=== PATIENT | female | born 1975 ===

== ENCOUNTER 2018-04-01 13:03 | Emergency (ER) | payer OTHER ==
[2018-04-01 13:21] VITALS: O2SAT 100
[2018-04-01 14:48] LABS: HEMOGLOBIN 12.8 g/dL (12.0-16.0); MEAN CELL VOLUME 90.3 fl (81.0-99.0); MEAN CORPUSCULAR HEMOGLOBIN 31.5 pg (27.0-31.0); MEAN CORPUSCULAR HGB CONC 34.9 g/dL (33.0-37.0); RBC 4.08 Mil/uL (3.80-5.20); WHITE BLOOD COUNT 8.6 K/uL (4.8-10.8)
[2018-04-01 14:57] LABS: BLOOD UREA NITROGEN 9 mg/dl (7-17); CALCIUM 9.3 mg/dL (8.4-10.2); GFR AFRICAN-AMERICAN > 60; GFR NON-AFRICAN AMERICAN > 60
--- NOTE | 2018-04-01 14:57 | ED PDOC ---
HPI: Abdomen Time Seen by Provider: 04/01/18 13:48 Chief Complaint (Nursing): Abdominal Pain Chief Complaint (Provider): abdominal pain & vomiting History Per: Patient History/Exam Limitations: no limitations Onset/Duration Of Symptoms: Days (x3 weeks), Intermittent Episodes Current Symptoms Are (Timing): Still Present Location Of Pain/Discomfort: Other (lower abdomen) Quality Of Discomfort: Cramping Associated Symptoms: Vomiting. denies: Fever, Chills, Diarrhea, Other (vaginal bleeding or discharge) Additional Complaint(s): Desire Romano is a 42 year old female, with a past medical history of HTN, who presents to the emergency department complaining of a crampy abdominal pain associated with vomiting onset for x3 weeks. Patient states the pain is on and off, and localized to the lower abdomen. Patient reports she has been vomiting intermittently once a day almost every day since onset. She is able to eat and drink but does report a decreased appetite. LMP on January 2018, and is unsure if she is . She denies any fever, chills, diarrhea, vaginal bleeding or discharge. No further medical complaints. PMD: None provided. Abnormal Vaginal Bleeding: No Last Menstral Period: January 2018 Past Medical History Reviewed: Historical Data, Nursing Documentation, Vital Signs Vital Signs: Last Vital Signs Temp 98.1 F 04/01/18 18:31 Pulse 74 04/01/18 18:31 Resp 16 04/01/18 18:31 BP 148/88 04/01/18 18:31 Pulse Ox 100 04/01/18 23:07 - Medical History PMH: HTN (as per EMS) - Surgical History Surgical History: No Surg Hx - Family History Family History: States: Unknown Family Hx - Social History Alcohol: Other (today) Drugs: Denies - Home Medications Home Medications: Ambulatory Orders Medication Instructions Recorded Sulfamethoxazole/Trimethoprim 1 tab PO BID #14 tab 12/15/16 [Bactrim DS 800 mg-160 mg] Labetalol [Trandate] 100 mg PO BID #30 tab 04/01/18 Multivit/Folic Acid/I 1 tab PO DAILY #100 tab 04/01/18 [ Plus] - Allergies Allergies/Adverse Reactions: Allergies Allergy/AdvReac Type Severity Reaction Status Date / Time No Known Allergies Allergy Verified 04/01/18 13:30 Review of Systems ROS Statement: Except As Marked, All Systems Reviewed And Found Negative Constitutional: Negative for: Fever, Chills Gastrointestinal: Positive for: Vomiting, Abdominal Pain (crampy). Negative for : Diarrhea Genitourinary Female: Negative for: Vaginal Discharge, Vaginal Bleeding Physical Exam - Reviewed Nursing Documentation Reviewed: Yes Vital Signs Reviewed: Yes - Physical Exam Appears: Positive for: Non-toxic, No Acute Distress Head Exam: Positive for: ATRAUMATIC, NORMOCEPHALIC Skin: Positive for: Normal Color, Warm, Dry Eye Exam: Positive for: Normal appearance, EOMI, PERRL ENT: Positive for: Normal ENT Inspection Neck: Positive for: Painless ROM Cardiovascular/Chest: Positive for: Regular Rate, Rhythm. Negative for: Murmur Respiratory: Positive for: Normal Breath Sounds. Negative for: Respiratory Distress Gastrointestinal/Abdominal: Positive for: Tenderness (suprapubic) Back: Positive for: Normal Inspection. Negative for: L CVA Tenderness, R CVA Tenderness, Vertebral Tenderness Extremity: Positive for: Normal ROM (upper and lower extremities). Negative for : Deformity, Swelling Neurologic/Psych: Positive for: Alert, Oriented. Negative for: Motor/Sensory Deficits - Laboratory Results Result Diagrams: 04/01/18 14:30 04/01/18 14:30 - ECG O2 Sat by Pulse Oximetry: 100 (RA) Pulse Ox Interpretation: Normal Medical Decision Making Medical Decision Making: Initial Impression: abdominal pain and vomiting in , UTI, hypertension in patient. R/O ectopic . Initial Plan: --Type and screen --BMP -- serum -- test --Urine dipstick --CBC --OB Transvaginal [US] --Reevaluation 14:02 -Patient tested positive for 17:00 -Patient signed out to Dr. Coleman, pending ultrasound. ----- Scribe Attestation: Documented by Jas Chow, acting as a scribe for Rubia Pack MD. Provider Scribe Attestation: All medical record entries made by the Scribe were at my direction and personally dictated by me. I have reviewed the chart and agree that the record accurately reflects my personal performance of the history, physical exam, medical decision making, and the department course for this patient. I have also personally directed, reviewed, and agree with the discharge instructions and disposition. Disposition - Clinical Impression Clinical Impression: Twin gestation in first trimester, Hypertension - Patient ED Disposition Is Patient to be Admitted: Transfer of Care Counseled Patient/Family Regarding: Studies Performed, Diagnosis - Disposition Referrals: [facility]Outside[facility] ([facility]3 [facility]) Disposition: Transfer of Care Disposition Time: 17:00 Condition: STABLE Prescriptions: Labetalol [Trandate] 100 mg PO BID #30 tab Multivit/Folic Acid/I [ Plus] 1 tab PO DAILY #100 tab Instructions: High Blood Pressure and , - The Third Month Forms: [facility] ED School/Work Excuse Print Language: OCCITAN Patient Signed Over To: Delia Coleman Handoff Comments: Pending ultrasound
[2018-04-01] MEDS ORDERED: Potassium Chloride 20 mEq ER Tab PO ONE ×2 (15:56→16:55)
[2018-04-01 17:03] VITALS: PULSE 74
--- NOTE | 2018-04-01 17:18 | ED PDOC ---
- Laboratory Results Result Diagrams: 04/01/18 14:30 04/01/18 14:30 - ECG O2 Sat by Pulse Oximetry: 100 (RA) Medical Decision Making Medical Decision Makin:00 -Patient endorsed to me by Dr. Pack, patient is with hypertension. Pending ultrasound, labs and final ER disposition. 17:36 Transvaginal US FINDINGS: UTERUS: Twin intrauterine gestation. Fetus A: Gestational sac equivalent to 9 weeks 0 days. The [place]-rump length 20 mm equal and 2 8 weeks 4 days. Average ultrasound age 8 weeks 6 days LAYO by ultrasound 11/05/2018 No detectable cardiac activity 8 mm yolk sac visualized. This is abnormal in diameter Fetus B: Gestational sac diameter equivalent to 8 weeks 1 day The Hideout-rump length 23 mm equivalent to 9 weeks 0 days Average ultrasound age 8 weeks 4 days heart rate 161 beats per minutes 5 mm yolk sac visualized. Uterus measures 12.5 x 7.5 x 8.2 cm. No uterine mass. CERVIX: Cervix closed and measures 3.9 cm RIGHT OVARY: Measures 3.4 x 2.1 x 3.5 cm. No mass. Normal flow. Simple cyst, 3.0 x 1.5 x 3.1 cm LEFT OVARY: Not visualized. FREE FLUID: None. OTHER FINDINGS: None. IMPRESSION: Twin intrauterine gestation. Fetus a demonstrates no detectable cardiac activity. Fetus B equal to 8 weeks 4 days gestational age with heart rate of 160 beats per minute. No subchorionic hemorrhage identified. Cervix long and closed. Incidental 3.1 cm simple right ovarian cyst. 18:00 -DW pt at length findings and plan of care. Upon provider reevaluation patient is feeling better, is medically stable, and requires no further treatment in the ED at this time. Patient will be discharged home with Rx for Labetalol and vitamins. Counseling was provided and all questions were answered regarding diagnosis and need for follow up with women's clinic for care. There is agreement to discharge plan. Return if symptoms persist or worsen. Disposition - Clinical Impression Clinical Impression: Twin gestation in first trimester, Hypertension - POA Present On Arrival: None - Disposition Referrals: [facility] [Outside] ([facility] 2[facility]3 [facility]) Disposition: Routine/Home Disposition Time: 18:00 Condition: STABLE Prescriptions: Labetalol [Trandate] 100 mg PO BID #30 tab Multivit/Folic Acid/I [ Plus] 1 tab PO DAILY #100 tab Instructions: High Blood Pressure and , - The Third Month Forms: [facility] ED School/Work Excuse Print Language: SWAZI
[2018-04-01 17:30] LABS: SQUAMOUS EPITHIAL 3 /hpf (0-5); URINE BACTERIA OCC (<OCC); URINE BILIRUBIN NEGATIVE (NEGATIVE); URINE BLOOD MODERATE (NEGATIVE); URINE CLARITY CLOUDY (Clear); URINE COLOR YELLOW (YELLOW); URINE GLUCOSE (UA) NEG (Normal); URINE LEUKOCYTE ESTERASE NEG Leu/uL (Negative); URINE PROTEIN NEGATIVE (NEGATIVE); URINE UROBILINOGEN 0.2-1.0 mg/dL (0.2-1.0)
[2018-04-01 17:35] LABS: ALB/GLOB RATIO 1.1 (1.0-2.1); ALBUMIN 3.5 g/dL (3.5-5.0); BILIRUBIN,DIRECT 0.3 mg/ml (0.0-0.4)
--- NOTE | 2018-04-01 17:38 | US ---
PROCEDURE: OB Pelvic Ultrasound HISTORY: pelvic pain vomiting COMPARISON: None available. FINDINGS: UTERUS: Twin intrauterine gestation. Fetus A: Gestational sac equivalent to 9 weeks 0 days. [place]-rump length 20 mm equal and 2 8 weeks 4 days. Average ultrasound age 8 weeks 6 days LAYO by ultrasound 11/05/2018 No detectable cardiac activity 8 mm yolk sac visualized. This is abnormal in diameter Fetus B: Gestational sac diameter equivalent to 8 weeks 1 day Round[place]-rump length 23 mm equivalent to 9 weeks 0 days Average ultrasound age 8 weeks 4 days heart rate 161 beats per minutes 5 mm yolk sac visualized. Uterus measures 12.5 x 7.5 x 8.2 cm. No uterine mass. CERVIX: Cervix closed and measures 3.9 cm RIGHT OVARY: Measures 3.4 x 2.1 x 3.5 cm. No mass. Normal flow. Simple cyst, 3.0 x 1.5 x 3.1 cm LEFT OVARY: Not visualized. FREE FLUID: None. OTHER FINDINGS: None. IMPRESSION: Twin intrauterine gestation. Fetus a demonstrates no detectable cardiac activity. Fetus B equal to 8 weeks 4 days gestational age with heart rate of 160 beats per minute. No subchorionic hemorrhage identified. Cervix long and closed. Incidental 3.1 cm simple right ovarian cyst.
[2018-04-01 18:32] VITALS: BP 148/88; RESP 16; TEMP 98.1
== END 2018-04-01 18:25 | disposition home or self-care (01) ==
LOC: H.ER 13:03
DX: O26.891 Other specified pregnancy related conditions, first trimester (principal); I10 Essential (primary) hypertension; O16.1 Unspecified maternal hypertension, first trimester; O21.9 Vomiting of pregnancy, unspecified; O23.41 Unspecified infection of urinary tract in pregnancy, first trimester; O34.81 Maternal care for other abnormalities of pelvic organs, first trimester; Z3A.08 8 weeks gestation of pregnancy

== ENCOUNTER 2018-08-29 03:46 | Emergency (ER) | payer SELFPAY ==
[2018-08-29 05:51] VITALS: BMI 29.2
[2018-08-29 06:39] LABS: SQUAMOUS EPITHIAL < 1 /hpf (0-5); URINE BACTERIA RARE (<OCC); URINE BILIRUBIN NEGATIVE (NEGATIVE); URINE BLOOD MODERATE (NEGATIVE); URINE CLARITY SLIGHTY-CLOUDY (Clear); URINE COLOR YELLOW (YELLOW); URINE GLUCOSE (UA) NEG (Normal); URINE LEUKOCYTE ESTERASE NEG Leu/uL (Negative); URINE PROTEIN NEGATIVE (NEGATIVE); URINE UROBILINOGEN 0.2-1.0 mg/dL (0.2-1.0)
--- NOTE | 2018-08-29 09:42 | OBHP ---
Datetime: 08/29/2018 06:38 IP Adm Impression: , intrauterine IP Chief Complaint Other: Generalized body ache IP Admit Plan: Observation/Evaluation Admit Comment, IP Provider: 42 yo with IUP @ 31.2 weeks based on LAYO of 10/29/18 presents to the OB ED because of generalized body pain. She reports that began yesterday and is associated with with dry cough, subjective fever, headache and sore throat. Denies blurred vision, dysuria, nausea, v omiting, sick contacts, recent travel, diarrhea, night sweats, vaginal bleeding, contractions and los s of fluid. She reports good movement. Last sexual activity was last week. Patient follows at [facility], last visit was and next visit is in two weeks. Ros negative except for above. ObHx: this is complicated by Hypertension treated with Labetalol 100mg. 2 's- no complications. 1 miscarriage. PMH: Denies Family history: Denies Social: Denies alcohol use, smoking history, and illicit drug use. Surgical history: Denies Allergies: N.K.D.A Medications: PNV, labetalol 100mg Physical exam: Patient is in no acute distress. Heart: S1 and S2 appreciated. No murmurs, gallops or rubs. Lungs: Clear air entry bilaterally. Abdomen: Gravid, soft, non-tender to palpation Vaginal exam: Closed. Assessment: 42 yo with IUP @ 31.2 weeks presents with generalized body aches. NST Reactive Plan: - Discharge Home. - U/A: Negative - Patient encouraged to drink a lot of fluids at home and to take her usual labetalol 100 mg dosag e. - Labor precautions given - Patient counseled on making an appointment with her primary if she continues to not feel well. Discussed with Dr. Camilo ---Naomi Álvarez, PGY-1 [place]. Attending Note: patient was seen and evaluated with the resident and I agree with the above assess ment. Pelvic Type - PN: Adequate Extremities - PN: Normal Abdomen - PN: Normal Back - PN: Normal Breast - PN: Not Done Lungs - PN: Normal Heart - PN: Normal Thyroid - PN: Not Done Neurologic - PN: Not Done HEENT - PN: Not Done General - PN: Normal FHR - Baseline A Provider: 150 Gestation - Est Wks by US: 31.4 Vital Signs Provider: Reviewed Vital Signs Provider Details: hypertension IP Chief Complaint: Illness; Maternal discomfort NICHD Variability Prov Fetus A: Moderate 6-25bpm NICHD Accel Fetus A IP Provider: 15X15 FHR Category Provider Fetus A: Category I NICHD Decel Fetus A IP Provider: None Genitourinary Exam: Not Done DTRs - PN: Not Done
[2018-08-29 11:49] VITALS: BP 135/78; PULSE 89; RESP 18; TEMP 98.4; O2SAT 99
== END 2018-08-29 07:05 | disposition home or self-care (01) ==
LOC: H.EROB2 03:46
DX: O26.93 Pregnancy related conditions, unspecified, third trimester (principal); M79.10 Myalgia, unspecified site; R05 Cough; Z3A.31 31 weeks gestation of pregnancy

== ENCOUNTER 2018-10-13 12:16 | Emergency (ER) | payer SELFPAY ==
[2018-10-13 13:24] VITALS: BMI 28.3
[2018-10-13 14:01] LABS: URINE BILIRUBIN NEGATIVE (NEGATIVE); URINE CLARITY CLEAR (Clear); URINE COLOR YELLOW (YELLOW); URINE GLUCOSE (UA) NEG (Normal); URINE LEUKOCYTE ESTERASE NEG Leu/uL (Negative); URINE PROTEIN NEGATIVE (NEGATIVE); URINE UROBILINOGEN 0.2-1.0 mg/dL (0.2-1.0)
[2018-10-13 14:23] LABS: URINE BLOOD SMALL (NEGATIVE)
[2018-10-13 14:24] LABS: SQUAMOUS EPITHIAL 5 /hpf (0-5); URINE BACTERIA RARE (<OCC)
--- NOTE | 2018-10-13 16:21 | OBHP ---
Datetime: 10/13/2018 13:29 IP Adm Impression: , intrauterine ; No Active Labor; Intact Membranes IP Admit Plan: Observation/Evaluation; Discharge home Admit Comment, IP Provider: 42 y/o @ 36.4wks W/LAYO of 11/07/2018 _ medical hx of HTN came in c/o abdominal pain. She endorses +FM _ denies vaginal bleeding or loss of fluid. She denies any ligh theadedness, headache, blurred vision, n/v/diarrhea, chest discomfort or shortness of breath. OBGYNhx: 1 SAB, AMA PMH: chronic HTN Allergies: NKA Meds: Labetolol, PNV,ASA Famhx: denies Sochx: denies EtOH, cigarette or elicit drug us Surghx: denies ROS: 12 points reviewed an neg unless othwerise mentioned in HPI PE: Cardio: s1s2 RRR Lungs: cta b/l Abd: gravid, BS+, nontender Pelvic: cervix is fingertip Ext: nonedematous A/P:42 y/o @ 36.4wks W/LAYO of 11/07/2018 _ medical hx of HTN came in c/o abdominal pain. -Not in active labor -FU urinalysis -Vaginal swab performed -Patient will fu in clinic in 2 days Patient seen and evaluated with Dr. Galina Barnard, , PGY-1 OB Hospitalist professor of physical education. With Makenna Brizuela nurse and PGY1, she was seen and examined. Pt did not kno w when her next appt was scheduled for. She stated that nothing was written down as a reminder. I c alled [facility] and confirmed that she had appt to day at 4pm. GBS culture done today. Arranged that she s ees CF this at 10am. Pt understood. This appt was given to her (written) and explained in mohawk. I also spoek to Dr Shelton regarding this patient. MAHNDO Abdomen - PN: Normal Lungs - PN: Normal Heart - PN: Normal Contraction Comments Provider: none Pool Provider: Negative IP Hx Assessment: The History has been Reviewed and is Current EGA AdmitDate IP: 36.3 Vital Signs Provider: Reviewed IP Chief Complaint: Uterine contractions; Maternal discomfort FHR Category Provider Fetus A: Category I NICHD Decel Fetus A IP Provider: None Dilatation, Provider: 0
[2018-10-14] MEDS ORDERED: Magnesium Sul 40GM/1L SW 40 GM/1,000 ML ML IV ONE (04:43)
[2018-10-14] MEDS ORDERED: OXYTOCIN/0.9 % NS 20 UNIT/1,000 ML BAG IV ONE (07:21)
[2018-10-14] MEDS ORDERED: ceFAZolin IV 2 gm in Dextrose 2 GM/50 ML BAG IVPB ONE (07:22)
[2018-10-14] MEDS ORDERED: Morphine 1 mg/ml preservative-free Inj(Duramorph) ONE (07:41)
[2018-10-14] MEDS ORDERED: ePHEDrine 50 mg/ml Inj ONE (07:42)
[2018-10-14] MEDS ORDERED: Phenylephrine 10 mg/ml Inj ONE (07:43)
[2018-10-14] MEDS ORDERED: Cellulose Hemostat 2X3 Sheet ONE (12:14)
[2018-10-14] MEDS ORDERED: Propofol 10 mg/ml Inj (20 ML) ONE (12:20)
[2018-10-14] MEDS ORDERED: Absorbable Gelatin Sponge Size 12-7 ONE (12:26)
[2018-10-20 00:11] VITALS: BP 147/85; PULSE 85; RESP 20; TEMP 98.1; O2SAT 99
== END 2018-10-13 13:45 | disposition home or self-care (01) ==
LOC: H.EROB2 12:16
DX: O26.93 Pregnancy related conditions, unspecified, third trimester (principal); R10.2 Pelvic and perineal pain; Z3A.36 36 weeks gestation of pregnancy
CPT/HCPCS: 81003; 87081; 99283; J2270; J2370; J2405; J2704; J3010

== ENCOUNTER 2018-10-14 03:37 | Inpatient (IN) | payer MEDICAID, SELFPAY ==
[2018-10-13 13:24] VITALS: BMI 28.3
[2018-10-14] MEDS ORDERED: ceFAZolin IV 2 gm in Dextrose 2 GM/50 ML BAG IVPB ONE ×3 (04:34→13:47)
[2018-10-14] MEDS ORDERED: AMPicillin 2 GM in Sodium Chloride 0.9% 100 ML IV ONE (04:42)
[2018-10-14] MEDS ORDERED: Magnesium Sulfate 4 gm/100 ml 4 GM/100 ML BAG IV ONE (04:42)
[2018-10-14] MEDS ORDERED: Magnesium Sul 40GM/1L SW 40 GM/1,000 ML ML IV ONE ×2 (04:44→04:46)
[2018-10-14] MEDS ORDERED: Lactated Ringer's 1,000 ML IV SCH ×2 (04:45→13:00)
[2018-10-14] MEDS: Lactated Ringer's 1,000 ML IV SCH (04:52)
[2018-10-14 05:26] LABS: BASO % 0.3 % (0.0-2.0); EOS # 0.1 K/uL (0.0-0.7); EOS % 0.5 % (0.0-4.0); LYMPH # 3.1 K/uL (1.0-4.3); LYMPH % 27.8 % (20.0-40.0); MEAN CELL VOLUME 93.2 fl (81.0-99.0); MEAN CORPUSCULAR HGB CONC 33.3 g/dL (33.0-37.0); MEAN PLATELET VOLUME 11.8 fl (7.2-11.7); MONO # 0.7 K/uL (0.0-0.8); MONO % 6.5 % (0.0-10.0); NEUT # 7.3 K/uL (1.8-7.0); NEUT % 64.9 % (50.0-75.0); NRBC % 0.1 % (0.0-0.0); RBC 3.86 Mil/uL (3.80-5.20); RED CELL DISTRIBUTION WIDTH 13.1 % (11.5-14.5); WHITE BLOOD COUNT 11.3 K/uL (4.8-10.8)
[2018-10-14 05:54] LABS: ALB/GLOB RATIO 0.8 (1.0-2.1); ALBUMIN 3.3 g/dL (3.5-5.0); ALT/SGPT 16 U/L (9-52); AST/SGOT 25 U/L (14-36); BILIRUBIN,DIRECT 0.1 mg/ml (0.0-0.4); BLOOD UREA NITROGEN 10 mg/dl (7-17); CALCIUM 9.3 mg/dL (8.4-10.2); GFR NON-AFRICAN AMERICAN > 60; URIC ACID 5.9 mg/Dl (2.2-7.5)
[2018-10-14 07:03] LABS: SQUAMOUS EPITHIAL 4 /hpf (0-5); URINE BACTERIA OCC (<OCC); URINE BILIRUBIN NEGATIVE (NEGATIVE); URINE BLOOD MODERATE (NEGATIVE); URINE CLARITY SLIGHTY-CLOUDY (Clear); URINE COLOR YELLOW (YELLOW); URINE GLUCOSE (UA) NEG (Normal); URINE LEUKOCYTE ESTERASE NEG Leu/uL (Negative); URINE PROTEIN NEGATIVE (NEGATIVE); URINE UROBILINOGEN 0.2-1.0 mg/dL (0.2-1.0)
[2018-10-14] MEDS ORDERED: Oxytocin 30 UNIT 30 UNITS/500 ML BAG IV ONE ×2 (07:25→12:51)
[2018-10-14] MEDS ORDERED: OXYTOCIN/0.9 % NS 20 UNIT/1,000 ML BAG IV SCH ×2 (07:30→13:58)
--- NOTE | 2018-10-14 07:45 | OBADHP ---
Datetime: 10/14/2018 04:30 Admit Comment, IP Provider: Pt is a 42 yo F IUP @ 36.5wk LAYO is 11/06/18 based on 12 week U/ s on 04/17/18 and LMP of 01/30/18. Pt here for contractions since yesterday now every 15 mins apart and SROM at 2am. Denies vaginal bleeding, fevers, dizziness, headache, blurry vision, chest pain, SOB, na usea, vomiting, diarrhea, constipation, dysuria, swelling; Reports good movement. PNP: [facility]- Dr. Shelton PNL: ABO:A+ labs unremarkable OB HX: Preeclampsia, chronic HTN on Labetalol 2 at term 1 1997- D + C Materials Coordinator Hx: Pap normal, denies STI's PMHx: Chronic HTN Meds: Labetalol 100mg BID (Only taking it once per day), last took prenatals 1 week ago Allergies: NKDA Surg Hx: Denies Social Hx: Denies Smoking, EtOh, Drugs Family Hx: Denies PHYSICAL EXAM General: Lying in bed comfortable, NAD HEENT: NCAT, EOMI Heart: no murmurs, regular rate and rhythm, S1, S2 normal. Lungs: clear to auscultation bilaterally, no wheezing, rales or rhonchi Abdomen: Gravid, soft non tender to palpation, + BS LE: No edema Heart Rate: 130, moderate variability, Category 1, 15x15 A/P 42 yo F IUP @ 36.5wk here for contractions and SROM -Admit to L _ D. -Pre eclamptic work up -Started Magnesium -Ampicillin PPROM, AMA -Bedside U/S- transverse lie -Initiate C section protocol, Ancef -Bimanual- .5cm dilated, + Nitrazine -Monitor heart tracings 130 moderate variability, Category 1, 15x15 Case reviewed and discussed with Attending Penelope Moses M.D. PGY-1 OB Attending note: Pt seen and examined with PGY1...agree with note. She is a patient from [facility]. S he was seen yesterday in [place]. She understood that with malpresentation, she would have operative del shirley. She also stated that she wanted sterilizartion with BTL. Looking at [facility], sterilization conse nt obtained. Informed consent obtained for procedure (Procurement Consultant serivce used). MAHNDO Pelvic Type - PN: Adequate Extremities - PN: Normal Abdomen - PN: Normal Back - PN: Not Done Breast - PN: Not Done Lungs - PN: Normal Heart - PN: Normal Thyroid - PN: Not Done Neurologic - PN: Not Done HEENT - PN: Normal General - PN: Normal Presentation-Admit: Transverse FHR - Baseline A Provider: 130 Amniotic Fluid Color, Provider: Clear Membranes, Provider: Ruptured Comments, ACOG Physical Exam: Bedside U/S- Transverse lie Bimanual- .5cm dilated, + Nitrazine Pool Provider: Positive Nitrazine Provider: Positive (Annotations: Data stored by CPN on behalf of user) IP Hx Assessment: The History has been Reviewed and is Current (Annotations: Data stored by CPN on behalf of user) Vital Signs Provider: Reviewed Vital Signs Provider Details: BP 179/95 IP Chief Complaint: Uterine contractions; Suspected ruptured membranes NICHD Variability Prov Fetus A: Moderate 6-25bpm NICHD Accel Fetus A IP Provider: 15X15 FHR Category Provider Fetus A: Category I NICHD Decel Fetus A IP Provider: None Dilatation, Provider: FT Genitourinary Exam: Normal DTRs - PN: Not Done EGA AdmitDate IP: 36.5 IP Adm Impression: , intrauterine ; Ruptured Membranes IP Admit Plan: Admit to unit; Initiate Section protocol Datetime: 10/13/2018 13:29 Contraction Comments Provider: none Datetime: 08/29/2018 06:38 IP Chief Complaint Other: Generalized body ache Gestation - Est Wks by US: 31.4
[2018-10-14] MEDS ORDERED: Labetalol 5mg/ml (4ml) ONE (07:52)
--- NOTE | 2018-10-14 07:55 | OBPN ---
Datetime: 10/14/2018 07:30 IP Informed Consent Obtain: Section Delivery; Risks, Benefits and Alternatives Discussed IP Progress Plan: Deliver- Section IP Progress Note Comment: Again, we spoke again about procdure. Makenna Brizuela was present. Her additio nal questions were answered. Dr Mcgraw was also obtaining consent forms Datetime: 10/14/2018 04:30 Pool Provider: Positive Nitrazine Provider: Positive (Annotations: Data stored by CPN on behalf of user) Membranes, Provider: Ruptured Amniotic Fluid Color, Provider: Clear FHR - Baseline A Provider: 130 Presentation-Admit: Transverse Vital Signs Provider: Reviewed Vital Signs Provider Details: BP 179/95 NICHD Accel Fetus A IP Provider: 15X15 FHR Category Provider Fetus A: Category I NICHD Variability Prov Fetus A: Moderate 6-25bpm Dilatation, Provider: FT NICHD Decel Fetus A IP Provider: None Datetime: 10/13/2018 13:29 Contraction Comments Provider: none Datetime: 08/29/2018 06:38 Gestation - Est Wks by US: 31.4
[2018-10-14] MEDS: Lactated Ringer's 1,000 ML IV ONE ×2 (08:00→11:00)
[2018-10-14] MEDS ORDERED: Labetalol 5mg/ml (4ml) IVP STA ×2 (08:02→13:32)
[2018-10-14] MEDS ORDERED: Benzocaine/Menthol SPRAY TOP PRN (10:50)
[2018-10-14] MEDS ORDERED: Oxycodone/Acetaminophen 5/325 mg Tab PO PRN ×2 (12:51)
--- NOTE | 2018-10-14 12:58 | OBDS ---
DELIVERY PERSONNEL Delivery Doctor: Tabby Wilkes MD Lead Driver: Makenna Brizuela RN Anesthesiologist: MD charli Resident: Alex (Fellow) MATERNAL INFORMATION Delivery Anesthesia: Spinal Medications in Delivery: pitocin Estimated Blood Loss (ml): 1000 Placenta Cultured: No Maternal Complications: None RN Comments: Atraumatic primary delivery of a viable babygirl tolerated delivery we ll recived by Dr Landers assigned 9/9 APGARS. Clear fluid noted. Patient tolerated delivery well. Sk in to skin initiated Provider Comments: see operative report LABOR SUMMARY EDC: 11/06/2018 00:00 No. Babies in Womb: 1 Attempted: No Labor Anesthesia: Spinal LABOR INFORMATION Reason for Induction: Not Applicable Oxytocin: N/A Group B Beta Strep: Done, Result Unknown Antibiotics # of Doses: 1 Antibiotics Time of Last Dose: 10:50 Steroids Given: None Reason Steroids Not Administered: Not Applicable MEMBRANES Membranes Rupture Method: Spontaneous Rupture of Membranes: 10/14/2018 02:00 Length of Rupture (hrs): 9.70 Amniotic Fluid Color: Clear Amniotic Fluid Amount: Moderate Amniotic Fluid Odor: None STAGES OF LABOR Stage 3 hrs: 0 Stage 3 min: 1 CSECTION DELIVERY Primary Indication: Transverse/Complex Presentation Other Primary Indication: SROM CSection Urgency: Emergency CSection Incidence: Primary CSection Incision: Lower Uterine Transverse Sterilization Procedure: Urania BABY A INFORMATION Delivery Date/Time: 10/14/2018 11:42 Method of Delivery: Born in Route : No : N/A Forceps: N/A Vacuum Extraction: N/A Shoulder Dystocia : No SHOULDER DYSTOCIA BABY A Delivery Date/Time: 10/14/2018 11:42 PRESENTATION/POSITION BABY A Presentation: Cephalic Cephalic Presentation: Vertex Vertex Position: Left Occipital Anterior Breech Presentation: N/A PLACENTA INFORMATION BABY A Placenta Delivery Time : 10/14/2018 11:43 Placenta Method of Delivery: Manual Removal Placenta Status: Delivered SCORES BABY A Heart Rate 1 min: >100 bpm Resp Effort 1 min: Good Cry Reflex Irritability 1 min: Cough or Sneeze or Pulls Away Muscle Tone 1 min: Active Motion Color 1 min: Body [place], Extremities Blue Resuscitation Effort 1 min: N/A SCORE 1 MIN: 9 Heart Rate 5 min: >100 bpm Resp Effort 5 min: Good Cry Reflex Irritability 5 min: Cough or Sneeze or Pulls Away Muscle Tone 5 min: Active Motion Color 5 min: Body [place], Extremities Blue Resuscitation Effort 5 min: N/A SCORE 5 MIN: 9 INFANT INFORMATION BABY A Gestational Age at Delivery: 36.0 Gestational Status: Outcome : Liveborn Infant Condition : Stable Sex: Female IDENTIFICATION/MEDS BABY A ID Band Number: [id number] ID Band Location: Right Leg; Right Arm WEIGHT/LENGTH BABY A Infant Birthweight (gms): 2850 Infant Weight (lb): 6 Infant Weight (oz): 5 Length Inches: 18.90 Length cms: 48.0 CORD INFORMATION BABY A No. Cord Vessels: 3 Nuchal Cord : N/A Cord Blood Taken: No Infant Suction: Mouth ASSESSMENT BABY A Infant Complications: None Physical Findings at Delivery: Within Normal Limits Infant Respirations: Appears Normal Mig Welder/ALS Called : No Infant Care By: Dr Landers Transferred To: Remains with Mother
[2018-10-14] MEDS ORDERED: Morphine 1 mg/ml preservative-free Inj(Duramorph) EPI ONE (13:07)
[2018-10-14] MEDS ORDERED: DiphenhydrAMINE 50 mg/ml Inj IVP PRN (13:07)
[2018-10-14] MEDS ORDERED: Morphine 1 mg/ml preservative-free Inj(Duramorph) IT ONE (13:07)
--- NOTE | 2018-10-14 22:51 | OP ---
PROCEDURE DATE: 10/14/2018 PREOPERATIVE DIAGNOSES: Intrauterine at 36 weeks and 5 days, transverse lie, back up, spontaneous rupture of membranes, latent labor. POSTOPERATIVE DIAGNOSES: Intrauterine at 36 weeks and 5 days, transverse lie, back up, spontaneous rupture of membranes, latent labor. OPERATION PERFORMED: Primary low flap transverse section via Pfannenstiel skin incision. SURGEON: Dilcia Wilkes MD PAYMENT COLLECTOR: Catalino Johnson MD TYPE OF ANESTHESIA: Spinal. ANESTHESIA ADMINISTERED BY: Heidi Mcgraw MD ESTIMATED BLOOD LOSS: 1000 mL. URINE OUTPUT: Approximately 200 mL of clear urine. IV FLUID INTAKE: The patient received 2100 mL of D5 LR intraoperatively. OPERATIVE FINDINGS: Female , transverse lie, weighing 2850 g, Apgars 9 and 9. Normal uterus, tubes, and ovaries were identified. POSTOPERATIVE PROCEDURE: Primary low flap transverse section via Pfannenstiel skin incision with bilateral tubal ligation. DESCRIPTION OF PROCEDURE: After informed consent was obtained, the patient was taken to the operating room where she was given general anesthesia. She was then prepped and draped in a normal sterile fashion with a leftward tilt. A Pfannenstiel skin incision was then made with a scalpel and carried down to the underlying layer of fascia. The fascia was nicked in the midline and the fascial incision was then extended laterally with the curved Toribio scissors. The superior aspect of the fascial incision was then grasped with Carmencita clamps, elevated up, and the rectus muscles were dissected off using both sharp and blunt dissection. Attention was then turned to the inferior aspect of the fascial incision, which in a similar fashion was grasped with Carmencita clamps, elevated up, and the rectus muscles were dissected off using both sharp and blunt dissections. The rectus muscles were then in the midline. The peritoneum was identified and then entered sharply with the Metzenbaum scissors. The peritoneal incision was then extended superiorly and inferiorly with good visualization of the bladder. The bladder blade was inserted. The vesicouterine peritoneum was identified and entered sharply with Metzenbaum scissors. The incision was extended laterally and the bladder flap created digitally. The bladder blade was then readjusted and the low transverse incision was made with the scalpel. Incision was then extended laterally with the bandage scissors. The infant's position was noted. There was shoulder presentation. At that point, a decision was made to tear the uterus. The head and body were delivered without complication, and the infant was handed off to awaiting pediatricians. Placenta was then removed manually. Uterus was exteriorized and cleared of all clots and debris. The uterine incision was repaired with 0 Vicryl in a running locked fashion. A second layer of the same suture was used to obtain excellent hemostasis. The tear was then repaired using 2-0 Vicryl in a running locked fashion. Hemostasis was noted. Attention was then turned to the right fallopian tube. It was grasped with the [place], elevated up, and a knuckle of the tube was suture ligated with 2-0 Chromic. An additional free tie was placed around the knuckle of tube. The knuckle was then excised with Metzenbaum and sent to Pathology for evaluation. A similar procedure was performed on the left. The uterus was then returned to the abdomen. The abdomen was then copiously irrigated. The irrigant was removed with suction device. The incision was noted to be hemostatic. Gelfoam was applied. Through the uterine incision, the muscle was then reapproximated with 0 Vicryl in a running fashion. The fascia was closed with 0 Vicryl in a running fashion. The skin was closed with 4-0 on a Paul needle. All sponge, lap, needle, and instrument counts were correct x10. The patient was taken to the recovery room in awake and stable condition. Dilcia Wilkes MD
[2018-10-15] MEDS: Simethicone 80 mg Chewtab PO SCH ×6 (01:25→22:52)
[2018-10-15] MEDS: Lactated Ringer's 1,000 ML IV SCH (02:00)
[2018-10-15] MEDS ORDERED: Magnesium Sul 40GM/1L SW 40 GM/1,000 ML ML IV ONE (03:34)
[2018-10-15 06:14] LABS: HEMOGLOBIN 8.3 g/dL (12.0-16.0); MEAN CELL VOLUME 94.2 fl (81.0-99.0); MEAN CORPUSCULAR HEMOGLOBIN 31.7 pg (27.0-31.0); MEAN CORPUSCULAR HGB CONC 33.6 g/dL (33.0-37.0); RBC 2.62 Mil/uL (3.80-5.20); RED CELL DISTRIBUTION WIDTH 12.6 % (11.5-14.5); WHITE BLOOD COUNT 11.8 K/uL (4.8-10.8)
[2018-10-15] MEDS ORDERED: Multivitamin With Minerals Tab PO SCH (09:00)
--- NOTE | 2018-10-15 09:19 | OBPPN ---
Datetime: 10/15/2018 06:19 PP Pain Prov: Within normal limits PP Nausea Prov: Denies PP Flatus Prov: No PP BM Prov: No PP Breasts Prov: Not Done PP Heart Prov: Normal PP Lungs Prov: Normal PP Abdomen/Uterus Prov: Abnormal PP Lochia Prov: Normal PP Vulva/Perineum Prov: Not Done PP CVA Tenderness Prov: Not Done PP Extremities Prov: Normal PP C/S Incision Prov: Normal PP Progress Prov: Normal PP Comments Phys Exam Prov: Abdomen- Diffuse tenderness to palpation, distended, no tympany noted, d ecreased bowel sounds Extremities- wearing SCD's PP Impression Prov: Normal progression; Pain PP Plan Prov: Continue present management PP Impression Other Prov: Abdominal pain PP Progress Note Prov: Voyce: [id number] POD1 S: 42yo s/p C section on 10/14/18 @ 11:42 after preeclampsia and transverse lie. See n and examined at bedside. Patient was reporting abdominal pain and gas pain overnight. Today patient still has the abdominal pain minimally controlled with pain medicine. Breast and bottle feeding with out difficulty. Hasn't tried to eat yet but has an appetite. Has not ambulated yet due to being on MG post op. Loving is still inserted, Denies having a bowel movement and has not passed gas yet per rect um. Denies fever/chills, diarrhea/constipation, nausea/vomiting, CP/SOB, dizziness, or calf pain. O: Vitals: BP 127/71, Afebrile PHYSICAL EXAM: GEN: Resting uncomfortable in bed, NAD HEENT: NCAT LUNGS: CTA, no wheezing, rhonchi, or rales CVS: RRR, S1, S2, no m/r/g ABD: soft, distended diffuse tenderness to palpation, no tympany appreciated, decreased BS, firm f undus @ umbilical level, Incision covered with dressing clean dry and intact no blood noted EXT: Wearing SCD's A/P: 42yo s/p C section on 10/14/18 @ 11:42 after preeclampsia and transverse lie. Magnesium level 6.7 OOB with caution when MG is finished today to decrease abdominal discomfort Encouraged Regular diet Continue vitamin Ibuprofen 600 mg 1 tab q6 hrs po if mild pain. Percocet 5/325 mg 1-2 tablets po q 6 hrs if severe pain Simethicone 80mg Q6h PRN flatus pain Anticipated discharge 10/17/18 F/U in 1 week for and wound check appt and 4-6 weeks post- appt at [facility]. Case reviewed and discussed with Attending Penelope Moses M.D. PGY-1 Attending addendum: I saw and examined the patient at bedside myself this morning. I reviewed the resident note above and agree with findings and management. Patient is still on Magnesium sulfate due to PEC, to be turned off at noon today. No signs or sx of toxicity on exam. BP within normal range, no need for labetalol at this time, monitor closely. Anemia: hemodynamically stable, repeat CBC in morning to trend. encouraged. Anticipate DC in 2 days. Tomeka Helms MD IP PP Procedures: Tubal Ligation Vital Signs Provider PP: Reviewed; Within Normal Limits Vital Signs Provider Details PP: BP 128/73 Afebrile
[2018-10-15] MEDS ORDERED: Lactated Ringer's 1,000 ML IV ONE (13:48)
[2018-10-15] MEDS ORDERED: Oxycodone/Acetaminophen 5/325 mg Tab PO PRN ×2 (18:11→23:00)
[2018-10-15] MEDS ORDERED: DiphenhydrAMINE 50 mg/ml Inj IVP PRN (23:00)
[2018-10-16] MEDS: Simethicone 80 mg Chewtab PO SCH ×4 (03:02→22:07)
[2018-10-16 06:27] LABS: BASO % 0.2 % (0.0-2.0); EOS % 0.1 % (0.0-4.0); HEMOGLOBIN 7.8 g/dL (12.0-16.0); LYMPH # 2.1 K/uL (1.0-4.3); LYMPH % 14.6 % (20.0-40.0); MEAN CELL VOLUME 94.6 fl (81.0-99.0); MEAN CORPUSCULAR HEMOGLOBIN 31.4 pg (27.0-31.0); MEAN CORPUSCULAR HGB CONC 33.2 g/dL (33.0-37.0); MEAN PLATELET VOLUME 10.7 fl (7.2-11.7); MONO # 0.9 K/uL (0.0-0.8); MONO % 6.5 % (0.0-10.0); NEUT # 11.2 K/uL (1.8-7.0); NEUT % 78.6 % (50.0-75.0); RBC 2.49 Mil/uL (3.80-5.20); RED CELL DISTRIBUTION WIDTH 13.4 % (11.5-14.5); WHITE BLOOD COUNT 14.2 K/uL (4.8-10.8)
[2018-10-16] MEDS: Oxycodone/Acetaminophen 5/325 mg Tab PO PRN ×3 (09:12→19:46)
--- NOTE | 2018-10-16 09:14 | OBPPN ---
Datetime: 10/16/2018 06:17 PP Pain Prov: Within normal limits PP Nausea Prov: Denies PP Flatus Prov: Yes PP BM Prov: No PP Breasts Prov: Not Done PP Heart Prov: Normal PP Lungs Prov: Normal PP Abdomen/Uterus Prov: Normal PP Lochia Prov: Normal PP Vulva/Perineum Prov: Not Done PP CVA Tenderness Prov: Not Done PP Extremities Prov: Normal PP C/S Incision Prov: Normal PP Progress Prov: Normal PP Impression Prov: Normal progression; Pain PP Plan Prov: Continue present management PP Progress Note Prov: POD2 S: 42yo s/p C section on 10/14/18 @ 11:42 after preeclampsia and transverse lie. See n and examined at bedside. No acute overnight events. Patient is reporting abdominal pain this mornin g that isn't being controlled well with Percocet and Tylenol. Previous reported shoulder pain has res olved. Breast and bottle feeding without difficulty. Has a good appetite, tolerating oral intake. Has been OOB and ambulating without dizziness. Loving removed urinating without difficulty, Denies having a bowel movement and but is passing gas per rectum. Denies fever/chills, diarrhea/constipation, naus ea/vomiting, CP/SOB, dizziness, or calf pain. O: Hg 8.3 10/15/18 Vitals: BP 137/81 PHYSICAL EXAM: GEN: Resting uncomfortable in bed, NAD HEENT: NCAT LUNGS: CTA, no wheezing, rhonchi, or rales CVS: RRR, S1, S2, no m/r/g ABD: soft, appropriate tenderness to palpation, +BS, firm fundus @ umbilical level, Incision is cl jeffry dry and intact no blood noted EXT: No edema A/P: 42yo s/p C section on 10/14/18 @ 11:42 after preeclampsia and transverse lie. BP controlled last BP was 137/81 (Labetalol held if BP <150/90) Last dose given 10/15 @ 10am Encouraged increased Ambulation Ibuprofen 600mg once for increased pain control- reassess if BP increases Started Dulcolax FL MG was discontinued F/u CBC for Hg trend-pending Encouraged Advancing to regular diet Continue vitamin Percocet 5/325 mg 1-2 tablets po q 6 hrs if severe pain Tylenol 650mg Q6 PRN Simethicone 80mg Q6h PRN flatus pain Anticipated discharge 10/17/18 F/U in 1 week for and wound check appt and 4-6 weeks post- appt at [facility]- Emailed Stacey Case reviewed and discussed with Attending Penelope Moses M.D. PGY-1 Attending addendum: I saw and examined the patient at bedside myself this morning. I reviewed the resident note above and agree with findings and management. Blood pressure well controlled, continue to hold labetalol. P atient understands to check bp at home once discharged and has rx for labetalol already. Pain controlled with percocet. BM today. Ambulating without difficulty. Incision C/D/I. Anticipate DC home tomorrow. Tomeka Helms MD IP PP Procedures: Tubal Ligation Vital Signs Provider PP: Reviewed Vital Signs Provider Details PP: 137/81
[2018-10-17] MEDS: Oxycodone/Acetaminophen 5/325 mg Tab PO PRN ×3 (00:19→09:44)
[2018-10-17] MEDS: Simethicone 80 mg Chewtab PO SCH ×2 (04:41→09:44)
[2018-10-17 09:03] LABS: BASO % 0.3 % (0.0-2.0); EOS # 0.1 K/uL (0.0-0.7); EOS % 1.3 % (0.0-4.0); HEMOGLOBIN 7.7 g/dL (12.0-16.0); LYMPH # 3.3 K/uL (1.0-4.3); LYMPH % 32.8 % (20.0-40.0); MEAN CELL VOLUME 94.8 fl (81.0-99.0); MEAN CORPUSCULAR HEMOGLOBIN 31.6 pg (27.0-31.0); MEAN CORPUSCULAR HGB CONC 33.4 g/dL (33.0-37.0); MEAN PLATELET VOLUME 10.6 fl (7.2-11.7); MONO # 0.7 K/uL (0.0-0.8); MONO % 6.8 % (0.0-10.0); NEUT # 5.9 K/uL (1.8-7.0); NEUT % 58.8 % (50.0-75.0); RBC 2.43 Mil/uL (3.80-5.20); RED CELL DISTRIBUTION WIDTH 13.2 % (11.5-14.5)
[2018-10-17 18:19] VITALS: BP 147/85; PULSE 85; RESP 20; TEMP 98.1; O2SAT 99
== END 2018-10-17 13:20 | disposition home or self-care (01) | DRG 540 ==
LOC: H.EROB2 03:37 → H.L&D 04:36 → H.OB/GYN 10-15 14:26
PROVIDERS: ADMIT Obstetrics & Gynecology; ATTEND Obstetrics & Gynecology
PROC: 10D00Z1 Extraction of Products of Conception, Low, Open Approach (ICD-10-PCS; principal; 2018-10-14)
PROC: 4A1HXCZ Monitoring of Products of Conception, Cardiac Rate, External Approach (ICD-10-PCS; 2018-10-14)
DX: O42.013 Preterm premature rupture of membranes, onset of labor within 24 hours of rupture, third trimester (principal); O10.92 Unspecified pre-existing hypertension complicating childbirth; O32.2XX0 Maternal care for transverse and oblique lie, not applicable or unspecified; Z37.0 Single live birth; Z3A.36 36 weeks gestation of pregnancy; O99.02 Anemia complicating childbirth